=== PATIENT | female | born 1950 | race Two or more races ===

== ENCOUNTER → 2020-05-30 13:19 | Outpatient (BNVA) | payer MEDICARE, MEDICAID, SELFPAY | PROVIDERS: PCP Internal Medicine Geriatric Medicine; Referring Provider Internal Medicine Geriatric Medicine; Visit Provider Hospitalist | DX: J45.909 Unspecified asthma, uncomplicated (principal); R05 Cough; G47.33 Obstructive sleep apnea (adult) (pediatric); Z99.89 Dependence on other enabling machines and devices | CPT/HCPCS: 99212 ==

== ENCOUNTER → 2020-06-04 14:38 | Outpatient (BNVA) | payer MEDICARE, MEDICAID, SELFPAY | PROVIDERS: PCP Internal Medicine Geriatric Medicine; Referring Provider Internal Medicine Geriatric Medicine; Visit Provider Physician Assistant | DX: D64.9 Anemia, unspecified (principal) | CPT/HCPCS: 99212 ==

== ENCOUNTER → 2020-09-20 13:44 | Outpatient (BNVA) | payer MEDICARE, MEDICAID, SELFPAY | PROVIDERS: PCP Internal Medicine Geriatric Medicine; Visit Provider Hospitalist | CPT/HCPCS: Q3014 ==

== ENCOUNTER → 2020-10-23 14:47 | Outpatient (BNVA) | payer MEDICARE, MEDICAID, SELFPAY | PROVIDERS: PCP Internal Medicine Geriatric Medicine; Visit Provider Internal Medicine Gastroenterology | DX: Z13.89 Encounter for screening for other disorder (principal) | CPT/HCPCS: Q3014 ==

== ENCOUNTER → 2020-11-25 13:29 | Outpatient (BNVA) | payer MEDICARE, MEDICAID, SELFPAY | PROVIDERS: PCP Internal Medicine Geriatric Medicine; Visit Provider Hospitalist | DX: J44.9 Chronic obstructive pulmonary disease, unspecified (principal) | CPT/HCPCS: Q3014 ==

== ENCOUNTER → 2021-01-06 11:25 | Outpatient (BNVA) | payer MEDICARE, MEDICAID, SELFPAY | PROVIDERS: PCP Internal Medicine Geriatric Medicine; Visit Provider Internal Medicine Gastroenterology | CPT/HCPCS: Q3014 ==

== ENCOUNTER → 2021-02-24 12:58 | Outpatient (BNVA) | payer MEDICARE, MEDICAID, SELFPAY | PROVIDERS: PCP Internal Medicine Geriatric Medicine; Visit Provider Hospitalist | DX: J98.4 Other disorders of lung (principal); J45.40 Moderate persistent asthma, uncomplicated; R05 Cough; G47.33 Obstructive sleep apnea (adult) (pediatric); K21.00 Gastro-esophageal reflux disease with esophagitis, without bleeding; Z99.89 Dependence on other enabling machines and devices | CPT/HCPCS: Q3014 ==

== ENCOUNTER → 2021-05-22 13:34 | Outpatient (BNVA) | payer MEDICARE, MEDICAID, SELFPAY | PROVIDERS: PCP Internal Medicine Geriatric Medicine; Visit Provider Hospitalist | DX: J98.4 Other disorders of lung (principal); J45.40 Moderate persistent asthma, uncomplicated; G47.33 Obstructive sleep apnea (adult) (pediatric); R05.9 Cough, unspecified; K21.00 Gastro-esophageal reflux disease with esophagitis, without bleeding; Z99.89 Dependence on other enabling machines and devices | CPT/HCPCS: 99212 ==

== ENCOUNTER → 2021-08-21 09:03 | Outpatient (BNVA) | payer MEDICARE, MEDICAID, SELFPAY | PROVIDERS: PCP Internal Medicine Geriatric Medicine; Visit Provider Hospitalist | DX: J45.40 Moderate persistent asthma, uncomplicated (principal); J98.4 Other disorders of lung; G47.33 Obstructive sleep apnea (adult) (pediatric); K21.00 Gastro-esophageal reflux disease with esophagitis, without bleeding; Z99.89 Dependence on other enabling machines and devices; R05.9 Cough, unspecified | CPT/HCPCS: Q3014 ==

== ENCOUNTER 2022-02-12 11:26 | Outpatient (REF) | payer MEDICARE, MEDICAID, SELFPAY ==
--- NOTE | ~2022-02-12 | XR_ITS ---
EXAMINATION: XR CHEST CLINICAL INFORMATION: Lung disorder COMPARISON: November 15, 2018 TECHNIQUE: 2 views of the chest were obtained. FINDINGS: There is no evidence of acute disease, pneumothorax, or pleural effusion. Heart upper limits of normal size. No pulmonary edema. There is some limitations in evaluation of the retrocardiac region related to underpenetration from large body habitus. XR/XR chest 2V IMPRESSION: No acute disease.
== END 2022-02-12 11:27 | disposition home or self-care (01) ==
LOC: HO.XRAY 11:26
PROVIDERS: PCP Internal Medicine Geriatric Medicine; Visit Provider Hospitalist
DX: J98.4 Other disorders of lung (principal); R05.9 Cough, unspecified; J45.40 Moderate persistent asthma, uncomplicated; G47.33 Obstructive sleep apnea (adult) (pediatric); Z99.89 Dependence on other enabling machines and devices
CPT/HCPCS: 71046; 99212

== ENCOUNTER → 2022-12-21 13:18 | Outpatient (BNVA) | payer OTHER, SELFPAY | PROVIDERS: PCP Internal Medicine Geriatric Medicine; Visit Provider Hospitalist | DX: J44.9 Chronic obstructive pulmonary disease, unspecified (principal); J45.40 Moderate persistent asthma, uncomplicated; J98.4 Other disorders of lung; R07.9 Chest pain, unspecified; R05.9 Cough, unspecified; G47.33 Obstructive sleep apnea (adult) (pediatric); K21.00 Gastro-esophageal reflux disease with esophagitis, without bleeding; Z23 Encounter for immunization; Z99.89 Dependence on other enabling machines and devices; Z79.899 Other long term (current) drug therapy | CPT/HCPCS: 90471; 90677; 99212 ==

== ENCOUNTER 2023-05-28 12:08 | Outpatient (REF) | payer OTHER, SELFPAY ==
[2023-05-28 14:48] LABS: TSH reflex Free T4 4.03 uIU/mL (0.32-4.0)
[2023-05-28 15:31] LABS: Free T4 (Free Thyroxine) 0.88 ng/dL (0.71-1.85)
== END 2023-05-28 12:09 | disposition home or self-care (01) ==
LOC: HO.HHCL 12:08
PROVIDERS: Visit Provider Internal Medicine Geriatric Medicine
DX: J44.9 Chronic obstructive pulmonary disease, unspecified (principal); R42 Dizziness and giddiness; L65.9 Nonscarring hair loss, unspecified; E03.9 Hypothyroidism, unspecified
CPT/HCPCS: 36415; 84439; 84443

== ENCOUNTER 2023-06-02 10:40 | Outpatient (AMB) | payer OTHER, SELFPAY ==
[2023-06-02 10:46] VITALS: PULSE 70; O2SAT 96; BMI 68.0
--- NOTE | 2023-06-02 10:46 | A.OFFVIS_ITS ---
Intake Vital Signs 06/02/23 10:46 Height 5 ft 1 in Weight 360 lb BMI 68.0 Pulse 70 Pulse Source Pulse Oximeter Pulse Oximetry (%) 96 Oxygen Delivery Method Room Air Intake Visit Reasons: COPD Allergies acetaminophen [Percocet] Allergy (Intermediate, Verified 06/02/23 10:47) Rash and Hives oxycodone [Percocet] Allergy (Intermediate, Verified 06/02/23 10:47) Rash and Hives Fried food, Soda Allergy (Intermediate, Uncoded 06/02/23 10:47) Rash and Hives Lyrica Allergy (Intermediate, Uncoded 06/02/23 10:47) Rash and Hives [place] Adverse Reaction (Intermediate, Uncoded 06/02/23 10:47) Rash and Hives Lactose Intolerant Adverse Reaction (Mild, Uncoded 06/02/23 10:47) Rash and Hives HPI HPI Comments History of Present Illness Details The patient is a 72 y/o woman with a history of COPD and CHERRI. pt says she feels out of breath every moring and every day. pt says she gets chest tightness occasionally everyday. pt says she feels everyday she is struggling to breath. pt uses nebulizer once a day mostly. pt keeps inhalers close by incase of an asthma attack. pt says she had PFT done over at [facility] but a while ago. pt feels shortness of breath when she is walking. pt feels alot of phlegm in the back of her throat. The patient has been using Symbicort and also incruise in the past, but, due to her restrictive lung disease and muscle weakness it is unlikely that the inhalers are effective treating her airway obstruction. She does respond better to the nebulizer. Therefore, we will switch her over to nebulized therapy at this time. She is also not using her CPAP therapy. She is concerned about this mouth from the tubing. She was hospitalized at [facility] with worsening shortness of breath. There her BNP was elevated and had an x-ray consistent with pulmonary edema. The patient was diuresed and she was placed on torsemide. She had an echocardiogram demonstrating normal ejection fraction but did have some slight diastolic dysfunction. She responded well to the diuresis. 08/21/2021 this is a telephone visit for the patient. The patient recently started developing worsening respiratory symptoms and wheezing along with coughing. She did have to take prednisone for period of time. Now she has completed the course. Her cough has become more dry. She responded well to the cough syrup. She is asking for refill. In the meantime with the coughing she has not been able to use her CPAP regularly. She knows to go back to it once her respiratory symptoms improved. She continues with respiratory therapy. She feels the Trelegy inhaler is increasing her blood pressure. I do believe visit good inhaler for her therefore I will decrease the dose from the 200 mcg t o that 100 mcg does with the hope that she can not tolerated better. I also emphasized to her that the increasing blood pressures that she is experiencing does in this is certainly have to be from the inhaler. 02/12/2022 the patient is here for a pulmonary follow-up visit. Since we last spoke she has been having a significant amount of difficulties with her breathing. She has had significant wheezing moderate severity. her family has been very concerned and thought about taking him to the ER. However they were concerned about her health and catching in different infection while in the hospital. I did give her information about dispatch health which is an option for her to get services at home for if necessary specially with her significant limitations. In addition to that the patient may be a candidate for a PACE program. However, this will change all her providers and she is not willing to do this at this time. I gave her information for her to review in the meantime. She continues use respiratory therapy. She has been using the Symbicort. Will optimize her respiratory therapy by adding Spiriva. She has used Spiriva in the past. In addition to that she does have productive cough with congestion. Will go ahead and place her on azithromycin for the treatment of chronic bronchitis. I am hopeful that this maximize therapy will be helpful for her. I did look at her chest x-ray which was very limited because it was over penetrated. But it appears that she did have an increased cardiac silhouette and also lucency in the upper lung zones. No focal area of pneumonia. She aided. She continues use her CPAP. The CPAP therapy continues to be affecting beneficial. She does use it for more than 4 hours a night. 05/20/2022 The patient is here for a telehealth visit. Overall she is doing a lot better on the Dupixent. Since starting the Dupixent her breathing has significantly improved her wheezing as well. She has not required any prednisone and has not required any nebulized therapy. She does continue her regular Maintenance respiratory therapy. However, since starting the Dupixent she has noticed worsening gastritis and reflux disease moderate to severe. His symptoms got worse after the initial Dupixent and then subsided may be about a 5-7 days later. Then, she had her 2nd dose of Dupixent and again the same circumstance. She feels pretty adamant that is related to her Dupixent. However, due to the fact that she feels so well on it she really would like to continue it if possible. Will go ahead and maximize her GI medications switching over to from omeprazole to Protonix twice a day. The patient also has sucralfate available. I am hopeful that by maximizing the GI medication she can not tolerate her Biologic therapy. She still struggling with CPAP. I did ask her to bring it in the next time so we can assess the CPAP and also possibly adjust the mask. 12/21/2022 The patient is here for a pulmonary follow up visit. Has been having more nasal congestion and cough, moderate in severity. Worse now during the spring. She initially was feeling better while on the dupixent, but had to stop it due to GI side effects. She has been using her inhalers. Does have have xopenex but did not use it because her nebulizer broke, She needs a replacement. She continues to use her CPAP. The PAP therapy has been effective and beneficial. Using it more than 4 hours. Using F30 mask, we went over the headgear adjustment. 06/02/2023 the patient is here for a pulmonary follow-up visit. Since we last spoke the patient developed COVID-19 over the summer. She did not take any antiviral therapy. She took cytv-zjo-ddizvxp medications. Ultimately developed a worsening productive cough. She continued taking vnqg-ytm-gmzyiio medication and also her nebulizer machine. She did not need any prednisone or antibiotics. She is still having issues with her asthma her. She feels like it is not controlled. She did very all the Dupixent although I did give her adverse effects. We did talk about other potential biologics such as Tezspire. But, at this point would like to hold off on any new medications. The patient does respond well to the current respiratory regimen. She also has a nebulizer that she can use. She also continues uses CPAP every night. The CPAP therapy continues to be affecting beneficial. She will continue to use it every night. The patient also needs to get her vaccines. We did call the pharmacy and they will be able to provide her with the RSV vaccine to the family in order for her to be Administered by [facility] at home. [facility] Medical History (Updated 06/02/23 @ 11:01 by Linus Henriquez MD) Dysphasia Dysphagia Irritable bowel syndrome with both constipation and diarrhea GERD (gastroesophageal reflux disease) Gas bloat syndrome COVID-19 Chronic restrictive lung disease Anemia Cough CHERRI on CPAP Asthma Surgical History History of esophagogastroduodenoscopy (EGD) Hx of colonoscopy Family History Unknown No problems noted. Father High blood pressure Diabetes Mother Diabetes Sister Asthma Social History (Updated 02/24/21 @ 13:06 by Fanta Olvera [facility]) Household Members: Family, Children and Other Alcohol intake: current Alcohol intake frequency: does not drink Patient Tobacco Use Status: Never used Tobacco Review of Systems Const Denies night sweats ENT Denies change in voice, Denies lip swelling, Denies mouth pain, Reports nasal congestion, Reports nasal discharge, Reports post nasal drip, Reports sinus pressure and Denies tongue swelling Card Denies chest pain, Denies dyspnea and Reports dyspnea on exertion Resp Denies change in phlegm color, Denies chest congestion, Reports cough, Denies dyspnea, Reports dyspnea on exertion and Denies wheezing GI Reports abdominal pain, Reports GI cramping, Reports dyspepsia and Reports heartburn Musc Reports abnormal gait, Reports back pain, Reports myalgias and Reports muscle weakness Neuro Denies Neuro-related abnormal movements and Reports abnormal gait Psych Denies no additional complaints Alvarado/Lymph Denies easy bleeding and Denies lymphadenopathy Aller/Immun Denies lip swelling, Denies tongue swelling and Denies wheezing Physical Exam Vital Signs: Last Vital Signs Pulse 70 06/02/23 10:46 Pulse Ox 96 06/02/23 10:46 Oxygen Delivery Method Room Air 06/02/23 10:46 BMI result Body Mass Index 68.0 Const General: comfortable Nutritional Appearance: overweight Limitations: physical limitations HEENT Head: Yes normal to inspection Eyes General: appearance normal, both eyes and all related structures Neck Neck: Yes normal visual inspection and Yes supple Chest Chest palpation & inspection: normal inspection of the chest Resp Auscultation: no wheezes and diminished lung sounds Cardio Rate: regular rate Rhythm: regular rhythm Heart sounds: S1 normal heart sound present and S2 normal heart sound present GI Inspection: Yes normal to inspection Extrem General: No clubbing, No cyanosis and Yes edema Assessment & Plan Assessment & Plan (1) Chronic restrictive lung disease: Comment: Primarily due to her elevated BMI Code(s): J98.4 - Other disorders of lung (2) Cough: Code(s): R05 - Cough Qualifiers: Cough type: chronic Qualified Code(s): R05.3 - Chronic cough (3) CHERRI on CPAP: Code(s): G47.33 - Obstructive sleep apnea (adult) (pediatric); Z99.89 - Dependence on other enabling machines and devices (4) Asthma: Code(s): J45.909 - Unspecified asthma, uncomplicated Qualifiers: Asthma complication type: uncomplicated Asthma persistence: persistent Asthma severity: moderate Qualified Code(s): J45.40 - Moderate persistent asthma, uncomplicated (5) GERD (gastroesophageal reflux disease): Code(s): K21.9 - Gastro-esophageal reflux disease without esophagitis Qualifiers: Esophagitis bleeding: without hemorrhage Esophagitis presence: with esophagitis Qualified Code(s): K21.00 - Gastro-esophageal reflux disease with esophagitis, without bleeding Plan Tessalon pearls as needed (goodrx) Nasal therapy: fluticasone and astelin continue Symbicort reflux diet Weight management keep head bed elevated while sleeping continue Protonic BID continue CPAP 14cm RSV vaccine Consider Tezspire follow-up in 3 months Medications: New codeine-guaifenesin 10-100 mg/5 mL 10 mL PO Q6H 10 days PRN 300 mL 0RF cough RSVPreF3 antigen-AS01E (PF) 120 mcg/0.5 mL (Arexvy (PF)) 0.5 mL IM ONCE 1 ea 0RF Coding Level of Care Code Est Pt Level 4 (86492) Diagnoses Chronic restrictive lung disease J98.4 Chronic cough R05.3 Cough type: chronic CHERRI on CPAP G47.33; Z99.89 Moderate persistent asthma without complication J45.40 Asthma complication type: uncomplicated Asthma persistence: persistent Asthma severity: moderate Gastroesophageal reflux disease with esophagitis without hemorrhage K21.00 Esophagitis bleeding: without hemorrhage Esophagitis presence: with esophagitis Time Spent (min) 17
== END 2023-06-02 11:17 | disposition home or self-care (01) ==
PROVIDERS: PCP Internal Medicine Geriatric Medicine; Visit Provider Hospitalist
DX: J98.4 Other disorders of lung (principal); R05.3 Chronic cough; G47.33 Obstructive sleep apnea (adult) (pediatric); Z99.89 Dependence on other enabling machines and devices; J45.40 Moderate persistent asthma, uncomplicated; K21.00 Gastro-esophageal reflux disease with esophagitis, without bleeding
CPT/HCPCS: 99214

== ENCOUNTER → 2023-06-02 10:40 | Outpatient (BNVA) | payer OTHER, SELFPAY | PROVIDERS: PCP Internal Medicine Geriatric Medicine; Visit Provider Hospitalist | DX: J45.40 Moderate persistent asthma, uncomplicated (principal); J98.4 Other disorders of lung; R05.3 Chronic cough; G47.33 Obstructive sleep apnea (adult) (pediatric); K21.00 Gastro-esophageal reflux disease with esophagitis, without bleeding; Z99.89 Dependence on other enabling machines and devices | CPT/HCPCS: 99212 ==

== ENCOUNTER 2023-10-04 12:05 | Outpatient (REF) | payer OTHER, SELFPAY ==
[2023-10-04 14:27] LABS: Anion Gap 12 (12-20); Blood Urea Nitrogen 16 mg/dL (9-16); Calcium 8.9 mg/dL (8.4-10.2); Carbon Dioxide 30 mmol/L (22-29); Chloride 105 mmol/L (96-108); Estimated Glomerular Filt Rate > 60; Glucose Random 89 mg/dL (60-115); Potassium 3.8 mmol/L (3.3-5.1); Sodium 143 mmol/L (135-145)
== END 2023-10-04 12:06 | disposition home or self-care (01) ==
LOC: HO.HHCL 12:05
PROVIDERS: Visit Provider Internal Medicine Geriatric Medicine
DX: N20.0 Calculus of kidney (principal); N17.9 Acute kidney failure, unspecified
CPT/HCPCS: 36415; 80048

== ENCOUNTER 2024-04-06 11:15 | Outpatient (AMB) | payer OTHER, SELFPAY ==
[2024-04-06 11:20] VITALS: BP 124/70; PULSE 77; O2SAT 94; BMI 70.3
--- NOTE | 2024-04-06 11:20 | A.OFFVIS_ITS ---
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 pt says she feels out of breath every moring and every day. pt says she gets chest tightness occasionally everyday. pt says she feels everyday she is struggling to breath. pt uses nebulizer once a day mostly. pt keeps inhalers close by incase of an asthma attack. pt says she had PFT done over at [facility] but a while ago. pt feels shortness of breath when she is walking. pt feels alot of phlegm in the back of her throat. The patient has been using Symbicort and also incruise in the past, but, due to her restrictive lung disease and muscle weakness it is unlikely that the inhalers are effective treating her airway obstruction. She does respond better to the nebulizer. Therefore, we will switch her over to nebulized therapy at this time. She is also not using her CPAP therapy. She is concerned about this mouth from the tubing. She was hospitalized at [facility] with worsening shortness of breath. There her BNP was elevated and had an x-ray consistent with pulmonary edema. The patient was diuresed and she was placed on torsemide. She had an echocardiogram demonstrating normal ejection fraction but did have some slight diastolic dysfunction. She responded well to the diuresis. 05/20/2022 The patient is here for a telehealth visit. Overall she is doing a lot better on the Dupixent. Since starting the Dupixent her breathing has significantly improved her wheezing as well. She has not required any predni sone and has not required any nebulized therapy. She does continue her regular Maintenance respiratory therapy. However, since starting the Dupixent she has noticed worsening gastritis and reflux disease moderate to severe. His symptoms got worse after the initial Dupixent and then subsided may be about a 5-7 days later. Then, she had her 2nd dose of Dupixent and again the same circumstance. She feels pretty adamant that is related to her Dupixent. However, due to the fact that she feels so well on it she really would like to continue it if possible. Will go ahead and maximize her GI medications switching over to from omeprazole to Protonix twice a day. The patient also has sucralfate available. I am hopeful that by maximizing the GI medication she can not tolerate her Biologic therapy. She still struggling with CPAP. I did ask her to bring it in the next time so we can assess the CPAP and also possibly adjust the mask. 12/21/2022 The patient is here for a pulmonary follow up visit. Has been having more nasal congestion and cough, moderate in severity. Worse now during the spring. She initially was feeling better while on the dupixent, but had to stop it due to GI side effects. She has been using her inhalers. Does have have xopenex but did not use it because her nebulizer broke, She needs a replacement. She continues to use her CPAP. The PAP therapy has been effective and beneficial. Using it more than 4 hours. Using F30 mask, we went over the headgear adjustment. 06/02/2023 the patient is here for a pulmonary follow-up visit. Since we last spoke the patient developed COVID-19 over the summer. She did not take any antiviral therapy. She took rphy-oag-sylscsq medications. Ultimately developed a worsening productive cough. She continued taking awam-brn-ajxjmij medication and also her nebulizer machine. She did not need any prednisone or antibiotics. She is still having issues with her asthma her. She feels like it is not controlled. She did very all the Dupixent although I did give her adverse effects. We did talk about other potential biologics such as Tezspire. But, at this point would like to hold off on any new medications. The patient does respond well to the current respiratory regimen. She also has a nebulizer that she can use. She also continues uses CPAP every night. The CPAP therapy continues to be affecting beneficial. She will continue to use it every night. The patient also needs to get her vaccines. We did call the pharmacy and they will be able to provide her with the RSV vaccine to the family in order for her to be Administered by [facility] at home. 04/06/2024 the patient is here for a pulmonary follow-up visit. She is doing well from a respiratory status. She is tolerating her respiratory medicines with good response. She did stop the Dupixent because of adverse effects including diarrhea. At this point she is doing well from a respiratory status we can avoid any additional biologic discussion. Her major complaint is significant back pain. She did have a CT scan of the abdomen and pelvis at [facility] which we personally reviewed. Has significant lumbar disease. In addition to that she had been dealing with some kidney stones since she is being evaluated by Urology for that. Still she is pretty much bed-bound because of the significant back pain. The patient will benefit from a pain specialist to see if they can help her with her chronic back pain located in the lumbar area. From a CPAP standpoint she continues uses CPAP. The CPAP therapy is affecting beneficial. We did talk about compliance. The patient needs to make sure to use it more than 4 hours a night. Also to note, we did review her CTA from [facility] [place] 01/2024 with small pulmonary nodules. She will need a repeat scan. [facility] Medical History (Updated 04/06/24 @ 22:34 by Linus Henriquez MD) Pulmonary nodules Back pain Dysphasia Dysphagia Irritable bowel syndrome with both constipation and diarrhea GERD (gastroesophageal reflux disease) Gas bloat syndrome COVID-19 Chronic restrictive lung disease Anemia Cough CHERRI on CPAP Asthma Surgical History History of esophagogastroduodenoscopy (EGD) Hx of colonoscopy Family History Unknown No problems noted. Father High blood pressure Diabetes Mother Diabetes Sister Asthma Social History (Updated 02/24/21 @ 13:06 by JUNO Hyman) Household Members: Family, Children and Other Alcohol intake: current Alcohol intake frequency: does not drink Patient Tobacco Use Status: Never used Tobacco Review of Systems Const Denies night sweats ENT Denies change in voice, Denies lip swelling, Denies mouth pain, Reports nasal congestion, Reports nasal discharge, Reports post nasal drip, Reports sinus pressure and Denies tongue swelling Card Denies chest pain, Denies dyspnea and Reports dyspnea on exertion Resp Denies change in phlegm color, Denies chest congestion, Reports cough, Denies dyspnea, Reports dyspnea on exertion and Reports wheezing GI Reports abdominal pain, Reports dyspepsia and Reports heartburn Musc Reports abnormal gait, Reports back pain, Reports myalgias and Reports muscle weakness Neuro Denies Neuro-related abnormal movements and Reports abnormal gait Psych Denies no additional complaints Alvarado/Lymph Denies easy bleeding and Denies lymphadenopathy Aller/Immun Denies lip swelling, Denies tongue swelling and Reports wheezing Physical Exam Vital Signs: Last Vital Signs Pulse 77 04/06/24 11:20 BP 124/70 04/06/24 11:20 Pulse Ox 94 04/06/24 11:20 Oxygen Delivery Method Room Air 04/06/24 11:20 BMI result Body Mass Index 70.3 Const General: comfortable Nutritional Appearance: overweight Limitations: physical limitations HEENT Head: Yes normal to inspection Eyes General: appearance normal, both eyes and all related structures Neck Neck: Yes normal visual inspection and Yes supple Chest Chest palpation & inspection: normal inspection of the chest Resp Effort & Inspection: normal respiratory effort Auscultation: no wheezes and diminished lung sounds Cardio Rate: regular rate Rhythm: regular rhythm Heart sounds: S1 normal heart sound present and S2 normal heart sound present GI Inspection: Yes normal to inspection Extrem General: No clubbing, No cyanosis and Yes edema Assessment & Plan Assessment & Plan (1) Chronic restrictive lung disease: Comment: Primarily due to her elevated BMI Code(s): J98.4 - Other disorders of lung Category: Medical (2) Cough: Code(s): R05 - Cough Category: Medical Qualifiers: Cough type: chronic Qualified Code(s): R05.3 - Chronic cough (3) CHERRI on CPAP: Code(s): G47.33 - Obstructive sleep apnea (adult) (pediatric); Z99.89 - Dependence on other enabling machines and devices Category: Medical (4) Asthma: Code(s): J45.909 - Unspecified asthma, uncomplicated Category: Medical Qualifiers: Asthma complication type: uncomplicated Asthma persistence: persistent Asthma severity: moderate Qualified Code(s): J45.40 - Moderate persistent asthma, uncomplicated (5) GERD (gastroesophageal reflux disease): Code(s): K21.9 - Gastro-esophageal reflux disease without esophagitis Category: Medical Qualifiers: Esophagitis bleeding: without hemorrhage Esophagitis presence: with esophagitis Qualified Code(s): K21.00 - Gastro-esophageal reflux disease with esophagitis, without bleeding (6) Back pain: Code(s): M54.9 - Dorsalgia, unspecified Category: Medical Qualifiers: Back pain location: low back pain Chronicity: unspecified Back pain laterality: unspecified Sciatica presence: unspecified whether sciatica present Qualified Code(s): M54.50 - Low back pain, unspecified (7) Pulmonary nodules: Code(s): R91.8 - Other nonspecific abnormal finding of lung field Category: Medical Plan Tessalon pearls as needed (goodrx) Nasal therapy: fluticasone and astelin continue Symbicort reflux diet Weight management keep head bed elevated while sleeping continue Protonix BID continue CPAP 14cm Consider Tezspire pain specialty eval for her significant lower back pain with abnormal CT ABD/Pelvis from [facility] [place] CT chest 12/2024 to f/u subcentimeter pulmonary nodules noted on CTA from [facility] [place] 01/2024 follow-up in 3 months Orders: Orders CT chest wo IV con 12/31/24 R91.8 - Other nonspecific abnormal finding of lung field Referrals Pain Management Referral M54.9 - Dorsalgia, unspecified Coding Level of Care Code Est Pt Level 4 (75387) Complex EM visit Add On G2211 Diagnoses Chronic restrictive lung disease J98.4 Chronic cough R05.3 Cough type: chronic CHERRI on CPAP G47.33; Z99.89 Moderate persistent asthma without complication J45.40 Asthma complication type: uncomplicated Asthma persistence: persistent Asthma severity: moderate Gastroesophageal reflux disease with esophagitis without hemorrhage K21.00 Esophagitis bleeding: without hemorrhage Esophagitis presence: with esophagitis Low back pain, unspecified back pain laterality, unspecified chronicity, unspecified whether sciatica present M54.50 Back pain location: low back pain Chronicity: unspecified Back pain laterality: unspecified Sciatica presence: unspecified whether sciatica present Pulmonary nodules R91.8 Time Spent (min) 18
== END 2024-04-06 11:52 | disposition home or self-care (01) ==
PROVIDERS: PCP Internal Medicine Geriatric Medicine; Visit Provider Hospitalist
DX: J98.4 Other disorders of lung (principal); R05.3 Chronic cough; G47.33 Obstructive sleep apnea (adult) (pediatric); Z99.89 Dependence on other enabling machines and devices; J45.40 Moderate persistent asthma, uncomplicated; K21.00 Gastro-esophageal reflux disease with esophagitis, without bleeding; M54.50 Low back pain, unspecified; R91.8 Other nonspecific abnormal finding of lung field
CPT/HCPCS: 99214; G2211

== ENCOUNTER → 2024-04-06 11:15 | Outpatient (BNVA) | payer OTHER, SELFPAY | PROVIDERS: PCP Internal Medicine Geriatric Medicine; Visit Provider Hospitalist | DX: J44.9 Chronic obstructive pulmonary disease, unspecified (principal); G47.33 Obstructive sleep apnea (adult) (pediatric); J98.4 Other disorders of lung; J45.40 Moderate persistent asthma, uncomplicated; R05.3 Chronic cough; R91.8 Other nonspecific abnormal finding of lung field; Z99.89 Dependence on other enabling machines and devices | CPT/HCPCS: 99212 ==

== ENCOUNTER 2024-07-12 11:02 | Outpatient (AMB) | payer OTHER, SELFPAY ==
--- NOTE | 2024-07-12 11:03 | MHC.OFFVIS ---
Intake Visit Reasons: COPD follow-up Allergies acetaminophen [Percocet] Allergy (Intermediate, Verified 07/12/24 11:03) Rash and Hives oxycodone [Percocet] Allergy (Intermediate, Verified 07/12/24 11:03) Rash and Hives Fried food, Soda Allergy (Intermediate, Uncoded 04/06/24 11:22) Rash and Hives Lyrica Allergy (Intermediate, Uncoded 04/06/24 11:22) Rash and Hives [place] Adverse Reaction (Intermediate, Uncoded 04/06/24 11:22) Rash and Hives Lactose Intolerant Adverse Reaction (Mild, Uncoded 04/06/24 11:22) Rash and Hives HPI Comments Details: The patient is a 73 y/o woman with a history of COPD and CHERRI. pt says she feels out of breath every moring and every day. pt says she gets chest tightness occasionally everyday. pt says she feels everyday she is struggling to breath. pt uses nebulizer once a day mostly. pt keeps inhalers close by incase of an asthma attack. pt says she had PFT done over at [facility] but a while ago. pt feels shortness of breath when she is walking. pt feels alot of phlegm in the back of her throat. The patient has been using Symbicort and also incruise in the past, but, due to her restrictive lung disease and muscle weakness it is unlikely that the inhalers are effective treating her airway obstruction. She does respond better to the nebulizer. Therefore, we will switch her over to nebulized therapy at this time. She is also not using her CPAP therapy. She is concerned about this mouth from the tubing. She was hospitalized at [facility] with worsening shortness of breath. There her BNP was elevated and had an x-ray consistent with pulmonary edema. The patient was diuresed and she was placed on torsemide. She had an echocardiogram demonstrating normal ejection fraction but did have some slight diastolic dysfunction. She responded well to the diuresis. 05/20/2022 The patient is here for a telehealth visit. Overall she is doing a lot better on the Dupixent. Since starting the Dupixent her breathing has significantly improved her wheezing as well. She has not required any prednisone and has not required any nebulized therapy. She does continue her regular Maintenance respiratory therapy. However, since starting the Dupixent she has noticed worsening gastritis and reflux disease moderate to severe. His symptoms got worse after the initial Dupixent and then subsided may be about a 5-7 days later. Then, she had her 2nd dose of Dupixent and again the same circumstance. She feels pretty adamant that is related to her Dupixent. However, due to the fact that she feels so well on it she really would like to continue it if possible. Will go ahead and maximize her GI medications switching over to from omeprazole to Protonix twice a day. The patient also has sucralfate available. I am hopeful that by maximizing the GI medication she can not tolerate her Biologic therapy. She still struggling with CPAP. I did ask her to bring it in the next time so we can assess the CPAP and also possibly adjust the mask. 12/21/2022 The patient is here for a pulmonary follow up visit. Has been having more nasal congestion and cough, moderate in severity. Worse now during the spring. She initially was feeling better while on the dupixent, but had to stop it due to GI side effects. She has been using her inhalers. Does have have xopenex but did not use it because her nebulizer broke, She needs a replacement. She continues to use her CPAP. The PAP therapy has been effective and beneficial. Using it more than 4 hours. Using F30 mask, we went over the headgear adjustment. 06/02/2023 the patient is here for a pulmonary follow-up visit. Since we last spoke the patient developed COVID-19 over the summer. She did not take any antiviral therapy. She took ytzv-phg-truwkes medications. Ultimately developed a worsening productive cough. She continued taking [id number]-rcswqpk medication and also her nebulizer machine. She did not need any prednisone or antibiotics. She is still having issues with her asthma her. She feels like it is not controlled. She did very all the Dupixent although I did give her adverse effects. We did talk about other potential biologics such as Tezspire. But, at this point would like to hold off on any new medications. The patient does respond well to the current respiratory regimen. She also has a nebulizer that she can use. She also continues uses CPAP every night. The CPAP therapy continues to be affecting beneficial. She will continue to use it every night. The patient also needs to get her vaccines. We did call the pharmacy and they will be able to provide her with the RSV vaccine to the family in order for her to be Administered by [facility] at home. 04/06/2024 the patient is here for a pulmonary follow-up visit. She is doing well from a respiratory status. She is tolerating her respiratory medicines with good response. She did stop the Dupixent because of adverse effects including diarrhea. At this point she is doing well from a respiratory status we can avoid any additional biologic discussion. Her major complaint is significant back pain. She did have a CT scan of the abdomen and pelvis at [facility] which we personally reviewed. Has significant lumbar disease. In addition to that she had been dealing with some kidney stones since she is being evaluated by Urology for that. Still she is pretty much bed-bound because of the significant back pain. The patient will benefit from a pain specialist to see if they can help her with her chronic back pain located in the lumbar area. From a CPAP standpoint she continues uses CPAP. The CPAP therapy is affecting beneficial. We did talk about compliance. The patient needs to make sure to use it more than 4 hours a night. Also to note, we did review her [place] [facility] [place] with small pulmonary nodules. She will need a repeat scan. 07/12/2024 this is a telehealth visit for the patient. Recently she was hospitalized at [facility]. Apparently she was in her usual state health until she got a boil in the back of her left lower extremity. Then after that she developed cellulitis and she was sent to the hospital. She did receive several antibiotics. While she was there she did receive a different respiratory treatment and she did not like it. Now she is back home she is getting her regular medications which appeared to be helpful. Recently she was exposed to a sick contact as 1 of her children or grandchildren were sick and she did develop some increasing wheezing. She did have some leftover prednisone she took a dose. Explained to her that she needs to be careful specially with the we can immune system taking prednisone that can lead to more infections. The patient will consider biologic therapy. In the meantime she is going to continue with respiratory regimen. Since we doing better now. She needs to be using her CPAP more. She has been having hard time then used to it. I did recommend she can use it during the daytime some so she can get used to it and then use it at nighttime to complete 4 hours a night. The patient will return in 4 months. If she has any issues prior to that she will call for an earlier assessment. [facility] Medical History (Updated 05/09/24 @ 09:35 by Linus Henriquez MD) Asthma-COPD overlap syndrome Pulmonary nodules Back pain Dysphasia Dysphagia Irritable bowel syndrome with both constipation and diarrhea GERD (gastroesophageal reflux disease) Gas bloat syndrome COVID-19 Chronic restrictive lung disease Anemia Cough CHERRI on CPAP Asthma Surgical History History of esophagogastroduodenoscopy (EGD) Hx of colonoscopy Family History Unknown No problems noted. Father High blood pressure Diabetes Mother Diabetes Sister Asthma Social History Household Members: Family, Children and Other Alcohol intake: current Alcohol intake frequency: does not drink Patient Tobacco Use Status: Never used Tobacco Review of Systems Const Denies night sweats ENT Denies change in voice, Denies lip swelling, Denies mouth pain, Reports nasal congestion, Reports nasal discharge, Reports post nasal drip, Reports sinus pressure and Denies tongue swelling Card Denies chest pain, Denies dyspnea and Reports dyspnea on exertion Resp Denies change in phlegm color, Denies chest congestion, Reports cough, Denies dyspnea, Reports dyspnea on exertion and Reports wheezing GI Reports abdominal pain, Reports dyspepsia and Reports heartburn Musc Reports abnormal gait, Reports back pain, Reports myalgias and Reports muscle weakness Neuro Denies Neuro-related abnormal movements and Reports abnormal gait Psych Denies no additional complaints [place]varado/Lymph Denies easy bleeding and Denies lymphadenopathy Aller/Immun Denies lip swelling, Denies tongue swelling and Reports wheezing Physical Exam Const General: comfortable Orientation/consciousness: patient oriented x3 Resp Effort & Inspection: normal respiratory effort and able to speak in complete sentences Neuro General: patient oriented x3 Telehealth Telehealth Telehealth Platform: Telephone Location of provider rendering services: practice address Location of patient: other Patient Identification confirmed using: Name, : Yes Telehealth method: voice only Patient verbally consented to treatment: Yes Patient verbally consented to billing insurance company: Yes Patient informed of any privacy concerns related to visit: Yes Assessment & Plan Assessment & Plan (1) Chronic restrictive lung disease: Comment: Primarily due to her elevated BMI Code(s): J98.4 - Other disorders of lung Category: Medical (2) Cough: Code(s): R05 - Cough Category: Medical Qualifiers: Cough type: chronic Qualified Code(s): R05.3 - Chronic cough (3) CHERRI on CPAP: Code(s): G47.33 - Obstructive sleep apnea (adult) (pediatric); Z99.89 - Dependence on other enabling machines and devices Category: Medical (4) Asthma: Code(s): J45.909 - Unspecified asthma, uncomplicated Category: Medical Qualifiers: Asthma complication type: uncomplicated Asthma persistence: persistent Asthma severity: moderate Qualified Code(s): J45.40 - Moderate persistent asthma, uncomplicated (5) GERD (gastroesophageal reflux disease): Code(s): K21.9 - Gastro-esophageal reflux disease without esophagitis Category: Medical Qualifiers: Esophagitis bleeding: without hemorrhage Esophagitis presence: with esophagitis Qualified Code(s): K21.00 - Gastro-esophageal reflux disease with esophagitis, without bleeding (6) Back pain: Code(s): M54.9 - Dorsalgia, unspecified Category: Medical Qualifiers: Back pain laterality: unspecified Back pain location: low back pain Chronicity: unspecified Sciatica presence: unspecified whether sciatica present Qualified Code(s): M54.50 - Low back pain, unspecified (7) Pulmonary nodules: Code(s): R91.8 - Other nonspecific abnormal finding of lung field Category: Medical Plan Tessalon pearls as needed (goodrx) Nasal therapy: fluticasone and astelin continue Symbicort reflux diet Weight management keep head bed elevated while sleeping continue Protonix BID continue CPAP 14cm Consider Tezspire CT chest 12/2024 to f/u subcentimeter pulmonary nodules noted on CTA from [facility] [place] follow-up in 3-4 months Medications: New prednisone PO daily; 4 tabs x 3 days, then 3 tabs x 3 days, then 2 tabs daily x 3 days, then 1 tab x 3 days to complete. 63 tabs 0RF 18 days Coding Level of Care Code Tele Est Pt Level 4 (53650) Diagnoses Chronic restrictive lung disease J98.4 Chronic cough R05.3 Cough type: chronic CHERRI on CPAP G47.33; Z99.89 Moderate persistent asthma without complication J45.40 Asthma complication type: uncomplicated Asthma persistence: persistent Asthma severity: moderate Gastroesophageal reflux disease with esophagitis without hemorrhage K21.00 Esophagitis bleeding: without hemorrhage Esophagitis presence: with esophagitis Low back pain, unspecified back pain laterality, unspecified chronicity, unspecified whether sciatica present M54.50 Back pain laterality: unspecified Back pain location: low back pain Chronicity: unspecified Sciatica presence: unspecified whether sciatica present Pulmonary nodules R91.8 Time Spent (min) 15
== END 2024-07-12 11:45 | disposition home or self-care (01) ==
LOC: HO.HPS 11:02
PROVIDERS: PCP Internal Medicine Geriatric Medicine; Visit Provider Hospitalist
DX: J45.40 Moderate persistent asthma, uncomplicated (principal); J98.4 Other disorders of lung; G47.33 Obstructive sleep apnea (adult) (pediatric); Z99.89 Dependence on other enabling machines and devices; K21.00 Gastro-esophageal reflux disease with esophagitis, without bleeding; M54.50 Low back pain, unspecified; R91.8 Other nonspecific abnormal finding of lung field
CPT/HCPCS: 99442

== ENCOUNTER 2024-12-29 13:16 | Outpatient (REF) | payer OTHER, SELFPAY ==
--- NOTE | ~2024-12-29 | CT_ITS ---
CLINICAL HISTORY: pulm nodules CT chest with contrast Comparison: None Findings: Very limited study due to patient body habitus. Noncontrasted technique also limits assessment. Multifocal right ground-glass densities. These are nonspecific in nature. Question pneumonia, please correlate. No other definite parenchymal abnormality. No significant mediastinal adenopathy noted. Cardiomegaly. No bony abnormality. Impression: Scattered right ground-glass densities Question pneumonia, please correlate This document has been electronically signed by: González Rodriguez MD on 01/01/2025 22:00:35
--- OUTSIDE RECORDS SUMMARY | 2024-12-29 13:25 | XMS_ITS | Encounter Summary ---
Author Organization [employer] Address [address] [place] [address] Care Team Providers Care Crop Scout Name Role Phone Name, Diogo CRUZ Primary Care Provider [phone] Encounter Details Date Type Department Care Team (Late st Contact Info) Description 06/18/2023 Abstract [facility] [address] [place] [address] Tammie Lima Social History Tobacco Use Types Packs/Day Years Used Date Smoking Tobacco: Never Smokeless Tobacco: Never Alcohol Use Standard Drinks/Week Comments Never 0 (1 standard drink = 0.6 oz pur e alcohol) Depression Answer Date Recorded Patient Health Questionnaire-9 Score 7 12/07/2022 Housing Stability Answer Date Recorded What is your housing situation today? I have behzad lebron 05/28/[address] you li ve. Do you have problems with any of the following? None of the above 05/28/2023 Food Insecurity Answer Date Recorded Within the past 12 months, y ou worried that your food would run out before you got money to buy more: Never True 05/28/2023 Within the past 12 months,th e food you bought just didn't last and you didn't have enough money to get more: Never True Transportation Answer Date Recorded In the past 12 months, has l ack of transportation kept you from medical appts, meetings, work or from getting things needed for daily living? No 05/28/2023 Utilities Answer Date Recorded In the past 12 months, has t he electric, gas, oil or water company threatened to shut off services in your home? No 05/28/2023 Depression Answer Date Recorded Patient Health Questionnaire-2 Score 2 12/07/2022 Comments Unknown Sex and Gender Information Value Date Recorded Sex Assigned at Female 06/01/2022 10:29 AM EDT Legal Sex Female 10:29 AM EDT Gender Identity Female 06/01/2022 10:29 AM EDT Sexual Orientation Straight 06/01/2022 10 :29 AM EDT documented as of this encounter Plan of Treatment Upcoming Encounters Date Type Department Care Team (Late st Contact Info) Description 02/16/2025 1:30 PM EDT Telemedicine [facility] [address] [place] [address] Christina Pineda, EPHRAIM documented as of this encounter Visit Diagnoses Not on filedocumented in this encounter Additional Health Concerns Assessment Noted Time PHQ-9 Depression Total Score: 7 12/08/19 23 1:02 PM EDT documented as of this encounter Care Teams Crop Scout Relationship Specialty Start Date End Date Name, MD Diogo [address] [place] [address] PCP - General Family Medicine 08/02/18 [place] 06/25/24 documented as of this encounter
== END 2024-12-29 13:17 | disposition home or self-care (01) ==
LOC: HO.CT 13:16
PROVIDERS: PCP Internal Medicine Geriatric Medicine; Visit Provider Hospitalist
DX: R91.8 Other nonspecific abnormal finding of lung field (principal)
CPT/HCPCS: 71250

== ENCOUNTER → 2024-12-29 13:19 | Outpatient (BNV) | payer OTHER, SELFPAY | PROVIDERS: PCP Internal Medicine Geriatric Medicine; Visit Provider Radiology Diagnostic Radiology | DX: R91.8 Other nonspecific abnormal finding of lung field (principal) | CPT/HCPCS: 71250 ==